=== PATIENT | female | born 1995 | race Caucasian/White ===

== ENCOUNTER 2018-09-14 12:33 | Emergency (ER) | payer OTHER ==
[~2018-09-14] VITALS: Ht 157.5 cm; Wt 65.9 kg
[2018-09-14] MEDS ORDERED: IBUPROFEN 800 MG TABLET PO ONE (14:15)
[2018-09-14 14:43] VITALS: BP 120/77
== END 2018-09-14 15:10 | disposition home or self-care (01) ==
LOC: EMS 12:35
DX: S96.911A Strain of unspecified muscle and tendon at ankle and foot level, right foot, initial encounter (principal); X50.1XXA Overexertion from prolonged static or awkward postures, initial encounter; Y93.01 Activity, walking, marching and hiking; Y92.89 Other specified places as the place of occurrence of the external cause; Y99.8 Other external cause status